=== PATIENT | female | born 1930 | race Caucasian/White ===

== ENCOUNTER 2018-10-01 12:15 | Day surgery (SDC) | payer MEDICARE, OTHER ==
[2018-10-01] MEDS ORDERED: LACTATED RINGERS 1,000 ML IV ONE ×2 (12:38→14:57)
[2018-10-01] MEDS ORDERED: MIDAZOLAM 2 MG/2 ML VIAL IVP ONE (14:00)
[2018-10-01] MEDS ORDERED: fentaNYL 250 MCG/5 ML VIAL IVP ONE (14:00)
[2018-10-01] MEDS ORDERED: LIDO GARGLE 30 ML BOTTLE ONE (14:05)
[2018-10-01] MEDS ORDERED: LIDO GARGLE 30 ML BOTTLE PO ONE (14:11)
[2018-10-01 15:42] VITALS: BP 116/58
== END 2018-10-01 12:16 | disposition home or self-care (01) ==
LOC: SDS 12:15
PROVIDERS: ATTEND Surgery
PROC: 0DB38ZX Excision of Lower Esophagus, Via Natural or Artificial Opening Endoscopic, Diagnostic (ICD-10-PCS; principal; 2018-10-01 13:30)
PROC: 0DJD8ZZ Inspection of Lower Intestinal Tract, Via Natural or Artificial Opening Endoscopic (ICD-10-PCS; 2018-10-01 13:30)
DX: Z12.11 Encounter for screening for malignant neoplasm of colon (principal); K21.0 Gastro-esophageal reflux disease with esophagitis; K64.8 Other hemorrhoids; Z86.010 Personal history of colon polyps; I10 Essential (primary) hypertension; Z87.891 Personal history of nicotine dependence; R07.89 Other chest pain
CPT/HCPCS: 43239; A9270; G0105; J3010; J7120

== ENCOUNTER 2020-11-07 13:00 | Outpatient (CLI) | payer MEDICARE, OTHER | END 2020-11-07 13:01 | disposition home or self-care (01) | LOC: COV 13:00 | PROVIDERS: ATTEND Surgery | DX: Z01.812 Encounter for preprocedural laboratory examination (principal); K22.2 Esophageal obstruction; Z20.828 Contact with and (suspected) exposure to other viral communicable diseases ==

== ENCOUNTER 2020-11-14 08:36 | Day surgery (SDC) | payer MEDICARE, OTHER ==
[2020-11-14] MEDS ORDERED: LACTATED RINGERS 1,000 ML IV ONE (08:41)
[2020-11-14] MEDS ORDERED: LIDO GARGLE 30 ML BOTTLE ONE (09:32)
[2020-11-14] MEDS ORDERED: MIDAZOLAM 2 MG/2 ML VIAL ONE (10:18)
[2020-11-14] MEDS ORDERED: fentaNYL 100 MCG/2 ML VIAL ONE (10:18)
[2020-11-14] MEDS ORDERED: LIDO GARGLE 30 ML BOTTLE TOP ONE (10:20)
[2020-11-14] MEDS ORDERED: BENZOCAINE/TETRACAINE/BUTAMBEN 20 GM TOP ONE (10:21)
[2020-11-14] MEDS ORDERED: LACTATED RINGERS 450 ML IV ONE (10:55)
[2020-11-14 11:39] VITALS: BP 152/66
== END 2020-11-14 08:37 | disposition home or self-care (01) ==
LOC: SDS 08:36
PROVIDERS: ATTEND Surgery
PROC: 0DB48ZX Excision of Esophagogastric Junction, Via Natural or Artificial Opening Endoscopic, Diagnostic (ICD-10-PCS; principal; 2020-11-14 10:00)
DX: K21.00 Gastro-esophageal reflux disease with esophagitis, without bleeding (principal); K44.9 Diaphragmatic hernia without obstruction or gangrene; Z79.82 Long term (current) use of aspirin; Z87.891 Personal history of nicotine dependence
CPT/HCPCS: 43239; A9270; J7120